=== PATIENT | male | born 1950 | race Caucasian/White ===

== ENCOUNTER 2016-07-20 23:03 | Emergency (ER) | payer MEDICARE, OTHER ==
[~2016-07-20] VITALS: Ht 177.8 cm; Wt 70.0 kg
[~2016-07-20 23:03] MED LIST: ALBU8I INH; GUAI100S6 PO; LEVA500T PO; PRED10PA PO; VARE1 PO; VARE1PAK3 PO
[2016-07-20 23:05] VITALS: BP 130/88; PULSE 117; RESP 20; TEMP 97.9; O2SAT 97
[2016-07-20] MEDS ORDERED: SYMB160A INH (23:23)
[2016-07-20] MEDS ORDERED: SODIUM CHLOR 0.9% 1000 ML INJ 1,000 ML IV ONE (23:30)
[2016-07-20] MEDS ORDERED: SODIUM CHLORIDE 0.9% FLUSH 10 ML FLUSH IVF PRN (23:30)
[2016-07-20] MEDS ORDERED: methylPREDNISolone SOD SUCC 125 MG/2 ML VIAL IVP ONE (23:30)
--- NOTE | 2016-07-21 00:11 | RADRPT ---
EXAM DATE/TIME: 07/21/2016 00:05 [place] COMPARISON: No previous studies available for comparison. INDICATIONS : Shortness of breath. MEDICAL HISTORY : None. SURGICAL HISTORY : None. ENCOUNTER: Initial ACUITY: 1 day PAIN SCORE: 0/10 LOCATION: Bilateral chest FINDINGS: The lungs are clear without infiltrate, nodule, or mass. There is no appreciable pleural effusion fo r technique. Heart and mediastinum are unremarkable. CONCLUSION: No acute cardiopulmonary disease. Zoila Zayas MD on July 21, 2016 at 0:07 Board Certified Radiologist. This report was verified electronically.
[2016-07-21] MEDS ORDERED: cefTRIAXone INJ 1,000 MG in SODIUM CHLORIDE 0.9% INJ 100 ML IV ONE (00:15)
[2016-07-21] MEDS ORDERED: AZITHROMYCIN INJ 500 MG in SODIUM CHLOR 0.9% 250 ML INJ 250 ML IV ONE (00:15)
[2016-07-21 00:30] VITALS: O2SAT 97
[2016-07-21] MEDS: RESP: ALBUTEROL 2.5 MG/IPRATROPIUM 0.5 MG NEB (SCH) INH ×2 (00:33→00:35)
[2016-07-21 00:48] LABS: BLOOD, URINE NEG (NEG); GLUCOSE,URINE NEG (NEG); KETONE, URINE NEG (NEG); NITRITE,URINE NEG (NEG); PH, URINE 5.5 (5.0-8.5); URINE COLOR COLORLESS (YELLW/STRAW)
[2016-07-21 00:51] LABS: AUTOMATED NEUTROPHIL # 4.4 TH/MM3 (1.8-7.7); BASOPHIL # 0.1 TH/MM3 (0-0.2); BASOPHIL % 0.9 % (0.0-2.0); EOSINOPHIL # 0.2 TH/MM3 (0-0.4); EOSINOPHIL % 2.6 % (0.0-4.0); HEMATOCRIT 44.9 % (39.0-51.0); HEMO FLAGS DIFF FINAL; LYMPH % 27.9 % (9.0-44.0); LYMPHOCYTE # 2.1 TH/MM3 (1.0-4.8); MEAN CELL VOLUME 96.4 FL (80.0-100.0); MEAN CORPUSCULAR HEMOGLOBIN 32.3 PG (27.0-34.0); MEAN CORPUSCULAR HGB CONC 33.5 % (32.0-36.0); MONO % 11.2 % (0.0-8.0); NEUT % 57.4 % (16.0-70.0); PLATELET COUNT 269 TH/MM3 (150-450); RED BLOOD COUNT 4.65 MIL/MM3 (4.50-5.90); RED CELL DISTRIBUTION WIDTH 13.5 % (11.6-17.2); WHITE BLOOD COUNT 7.6 TH/MM3 (4.0-11.0)
[2016-07-21 00:56] LABS: COMMENT (UR) CULT NOT INDICATED; CULTURE IF INDICATED CULT NOT INDICATED
[2016-07-21 00:57] LABS: APTT (PATIENT) 26.7 SEC (24.3-30.1); INTERNATIONAL NORMALIZED RATIO 0.9 RATIO
--- NOTE | 2016-07-21 01:04 | PD ---
HPI Chief Complaint: Chest Pain Time Seen by Provider: 23:20 Travel History International Travel<30 days: No Contact w/Intl Traveler<30days: No Traveled to known affect area: No History of Present Illness HPI The patient is a 66 year old male who presents to the [facility] emergency department with a history of shortness of breath that became worse yesterday when his air conditioning broke. The patient reports that he does have a history of COPD and is on inhalers. He unfortunately continues to smoke between one and 2 packs of cigarettes per day. The patient reports that since yesterday's had chest tightness which shortness of breath. He reports that he has a chronic daily productive cough that has not been any more productive than usual. He denies having any known fevers. He reports that his cough is occasionally productive of yellow sputum. He denies having any lower extremity edema, calf pain, or erythema. He denies having any prior history of congestive heart failure or myocardial infarction. I review systems, the patient denies any neck pain, abdominal pain, vomiting, diarrhea, urinary symptoms, or neurologic symptoms. [facility] Past Medical History Narrative Medical The patient's past medical history is significant for COPD, hypertension, daily alcohol use, daily tobacco use, history of chronic abdominal pain, history of acid reflux. Cardiovascular Problems: Yes COPD: Yes Gastrointestinal Disorders: Yes (CHRONIC ABD PAIN) GERD: Yes Hypertension: Yes Respiratory: Yes Tetanus Vaccination: < 5 Years Influenza Vaccination: Yes Past Surgical History Narrative Surgical The patient has a past surgical history significant for a Cedric fundoplication , appendectomy. Abdominal Surgery: Yes (STOMACH REPAIR OF SOME KIND FOR REFLUX) Appendectomy: Yes Social History Alcohol Use: Yes (8-10 BEERS DAILY) Tobacco Use: Yes (2PPD) Substance Use: No (DENIES USE) Allergies-Medications (Allergen,Severity, Reaction): Coded Allergies: No Known Allergies (Verified , 07/20/16) Reported Meds & Prescriptions Reported Meds & Active Scripts Active Reported Symbicort Inh (Budesonide/Formoterol Fumarate) 160-4.5 Mcg/Act Aero 2 Puff INH Q12HR Review of Systems Except as stated in HPI: all other systems reviewed are Neg General / Constitutional: No: Fever Eyes: No: Visual changes HENT: No: Headaches Cardiovascular: Positive: Chest Pain or Discomfort, No: Diaphoresis Respiratory: Positive: Cough, Shortness of Breath Gastrointestinal: No: Abdominal Pain Genitourinary: No: Dysuria Musculoskeletal: No: Pain Skin: No Rash Neurologic: No: Weakness, Focal Abnormalities, Change in Mentation, Sensory Disturbance Psychiatric: No: Depression Endocrine: No: Polydipsia Hematologic/Lymphatic: No: Easy Bruising Physical Exam Narrative General: The patient is a well-developed well-nourished male who appears slightly dyspneic on my arrival to the room. He occasionally experiences conversational dyspnea. Head and Neck exam: Head is normocephalic atraumatic. Eyes: EOMI, pupils are equal round and reactive to light. Nose: Midline septum with pink mucous membranes Mouth: Dentition unremarkable. Moist mucus membranes. Posterior oropharynx is not erythematous. No tonsillar hypertrophy. Uvula midline. Airway patent. Neck: No palpable lymphadenopathy. No nuchal rigidity. No thyromegaly. Cardiovascular: Sinus tachycardia in the 1 teens without murmurs, gallops, or rubs. No pulse deficit to the extremities and simultaneous auscultation and palpation of his radial artery. Lungs: Expiratory wheezes audible bilaterally with equal breath sounds. No crackles or rhonchi. No paroxysmal abdominal breathing. The patient does have some accessory muscle use and conversational dyspnea. Abdomen: Soft, without tenderness to palpation in all 4 quadrants of the abdomen. No guarding, rebound, or rigidity. Normal bowel sounds are audible. No tenderness on palpation of McBurney's point. Extremities: No clubbing, cyanosis, or edema. 2+ pulses in all 4 extremities. No calf tenderness on palpation Back: No costovertebral angle tenderness to palpation. Neurologic Exam: Grossly nonfocal. Skin Exam: No rash noted. Intact skin that is warm and dry. Data Data Last Documented VS Vital Signs Date Time Temp Pulse Resp B/P Pulse Ox O2 Delivery O2 Flow Rate FiO2 07/21/16 00:30 97 21 07/20/16 23:13 96 18 07/20/16 23:05 97.9 130/88 Room Air Orders Complete Blood Count With Diff (07/20/16 23:30) Comprehensive Metabolic Panel (07/20/16 23:30) B-Type Natriuretic Peptide (07/20/16 23:30) Act Partial Throm Time (Ptt) (07/20/16 23:30) Prothrombin Time / Inr (Pt) (07/20/16 23:30) Magnesium (Mg) (07/20/16 23:30) Ckmb (Isoenzyme) Profile (07/20/16 23:30) Troponin I (07/20/16:30) Urinalysis - C+S If Indicated (07/20/16 23:30) Blood Culture (07/20/16 23:30) Iv Access Insert/Monitor (07/20/16:30) Electrocardiogram (07/20/16:30) Ecg Monitoring (07/20/16:30) Oximetry (07/20/16:30) Oxygen Administration (07/20/16:30) Chest, Single Ap (07/20/16:30) Sodium Chloride 0.9% Flush (Ns Flush) (07/20/16 23:30) Methylprednisolone So Succ Inj (Solumedr (07/20/16 23:30) Albuterol-Ipratropium Neb (Duoneb Neb) (07/20/16 23:30) Westergren Sedimentation Rate (07/20/16 23:30) Lactic Acid Sepsis Protocol (07/20/16 23:30) Sodium Chlor 0.9% 1000 Ml Inj (Ns 1000 M (07/20/16 23:30) Ceftriaxone Inj (Rocephin Inj) (07/21/16 00:15) Azithromycin Inj (Zithromax Inj) (07/21/16 00:15) Sodium Chlor 0.9% 1000 Ml Inj (Ns 1000 M (07/21/16 01:13) Sodium Chlor 0.9% 1000 Ml Inj (Ns 1000 M (07/21/16 01:13) Sodium Chlor 0.9% 1000 Ml Inj (Ns 1000 M (07/21/16 01:13) Admit Order (Ed Use Only) (07/21/16 01:27) Labs Laboratory Tests Test 07/21/16 00:19 White Blood Count 7.6 TH/MM3 Red Blood Count 4.65 MIL/MM3 Hemoglobin 15.0 GM/DL Hematocrit 44.9 % Mean Corpuscular Volume 96.4 FL Mean Corpuscular Hemoglobin 32.3 PG Mean Corpuscular Hemoglobin 33.5 % Concent Red Cell Distribution Width 13.5 % Platelet Count 269 TH/MM3 Mean Platelet Volume 8.6 FL Neutrophils (%) (Auto) 57.4 % Lymphocytes (%) (Auto) 27.9 % Monocytes (%) (Auto) 11.2 % Eosinophils (%) (Auto) 2.6 % Basophils (%) (Auto) 0.9 % Neutrophils # (Auto) 4.4 TH/MM3 Lymphocytes # (Auto) 2.1 TH/MM3 Monocytes # (Auto) 0.9 TH/MM3 Eosinophils # (Auto) 0.2 TH/MM3 Basophils # (Auto) 0.1 TH/MM3 CBC Comment DIFF FINAL Differential Comment Erythrocyte Sedimentation Rate 2 mm/hr Prothrombin Time 10.0 SEC Prothromb Time International 0.9 RATIO Ratio Activated Partial 26.7 SEC Thromboplast Time Urine Color COLORLESS Urine Turbidity CLEAR Urine pH 5.5 Urine Specific [place] 1.002 Urine Protein NEG mg/dL Urine Glucose (UA) NEG mg/dL Urine Ketones NEG mg/dL Urine Occult Blood NEG Urine Nitrite NEG Urine Bilirubin NEG Urine Urobilinogen LESS THAN 2.0 MG/DL Urine Leukocyte Esterase NEG Microscopic Urinalysis Comment CULT NOT INDICATED Sodium Level 136 MEQ/L Potassium Level 3.8 MEQ/L Chloride Level 99 MEQ/L Carbon Dioxide Level 22.4 MEQ/L Anion Gap 15 MEQ/L Blood Urea Nitrogen 10 MG/DL Creatinine 0.63 MG/DL Estimat Glomerular Filtration 128 ML/MIN Rate Random Glucose 80 MG/DL Lactic Acid Level 4.2 mmol/L Calcium Level 9.0 MG/DL Magnesium Level 2.4 MG/DL Total Bilirubin 0.4 MG/DL Aspartate Amino Transf 31 U/L (AST/SGOT) Alanine Aminotransferase 28 U/L (ALT/SGPT) Alkaline Phosphatase 85 U/L Total Creatine Kinase 93 U/L Troponin I LESS THAN 0.02 NG/ML B-Type Natriuretic Peptide 7 PG/ML Total Protein 7.7 GM/DL Albumin 4.1 GM/DL MDM Medical Decision Making Medical Screen Exam Complete: Yes Emergency Medical Condition: Yes Medical Record Reviewed: Yes Interpretation(s) Last Impressions Chest X-Ray 07/20/16 2250 Signed Impressions: Service Date/Time: Thursday, July 21, 2016 00:05 - CONCLUSION: No acute cardiopulmonary disease. Zoila Zayas MD Differential Diagnosis COPD exacerbation, versus pneumonia, versus acute coronary syndrome, versus pneumothorax, versus anxiety disorder Narrative Course During the course of the patients emergency department visit, the patients history, examination, and differential diagnosis were reviewed with the patient. The patient had IV access obtained and blood work sent for analysis. The patient was placed on a property assessment monitor with oximetry and blood pressure monitoring. EKG was done on arrival. The patient's EKG shows a sinus rhythm with a sinus arrhythmia heart rate of 96, left anterior fascicular block, QRS duration 92 ms, QTC 410 ms without any acute ST segment elevation or depression. The patient was initially provided DuoNeb nebs 3, Solu-Medrol 125 mg IV, Rocephin 1 g IV, Zithromax 500 IV. The patients laboratory studies were reviewed and remarkable for a white count of 7.6, hemoglobin 15, platelets 269 with a monocytosis at 11.2, sedimentation rate is 2, ruling out temporal arteritis in this patient that reports having intermittent right temporal headaches. CMP is unremarkable, CPK 93, troponin I less than 0.02, BNP 7, lactic acid 4.2, PT PTT within normal limits, urinalysis unremarkable. Radiology studies were reviewed and remarkable for a chest x-ray that shows no acute cardiopulmonary disease. The patient was reexamined and continued to have expiratory wheezes. The patient reported feeling anxious. The patient requested to have his IV removed and to leave. I explained to him that the plan was to admit him for rule out serial cardiac enzyme protocol and continued treatment of his COPD exacerbation with IV steroids. The patient refused admission. The patient reports that he just wants to go home. I explained to the patient that he could develop respiratory failure at home. The patient reports that he does not care. The patient is oriented to person, place, time, and situation. The patient has elected to leave AGAINST MEDICAL ADVICE. AMA: The risks of leaving against medical advice without further evaluation treatment were discussed with the patient. These risks include cardiac dysfunction, cardiac dysrhythmia, possible heart attack, possible stroke or . The patient indicated understanding of these risks and appeared to have the capacity to make this decision. Physician Communication Physician Communication A call was placed out to Dr. Starkey regarding admission, however the patient elected to leave AGAINST MEDICAL ADVICE while I was on the phone discussing the patient with her for admission. She was made aware that the patient instead will be signing out AMA. Diagnosis Primary Impression: COPD with exacerbation Additional Impression: Chest pain, rule out acute myocardial infarction Admitting Information Admitting Physician Requests: Observation Referrals: Primary Care Physician 1 day Patient Instructions: COPD (Chronic Obstructive Pulmonary Disease) (ED), General Instructions Disposition: 07 AGAINST MEDICAL ADVICE Condition: Alicia Dumas MD Jul 21, 2016 01:04
[2016-07-21 01:11] LABS: ALKALINE PHOSPHATASE 85 U/L (45-117); ALT (GPT) 28 U/L (12-78); ANION GAP 15 MEQ/L (5-15); AST (GOT) 31 U/L (15-37); BICARBONATE 22.4 MEQ/L (21.0-32.0); BLOOD UREA NITROGEN 10 MG/DL (7-18); CHLORIDE 99 MEQ/L (98-107); CREATINE KINASE 93 U/L (39-308); GLOMERULAR FILTRATION RATE 128 ML/MIN (>89); MAGNESIUM 2.4 MG/DL (1.5-2.5); POTASSIUM 3.8 MEQ/L (3.5-5.1); SODIUM (NA) 136 MEQ/L (136-145); TOTAL BILIRUBIN ADULT 0.4 MG/DL (0.2-1.0)
[2016-07-21] MEDS ORDERED: SODIUM CHLOR 0.9% 1000 ML INJ 100 ML IV ONE (01:13)
[2016-07-21] MEDS ORDERED: SODIUM CHLOR 0.9% 1000 ML INJ 1,000 ML IV ONE ×2 (01:13)
[2016-07-21 02:36] LABS: LACTIC ACID GHOST NOT REPORTABLE
--- NOTE | 2016-07-21 07:55 | EKG ---
Date Performed: 07/20/2016 Time Performed: 23:19:17 PTAGE: 66 years EKG: BASELINE ARTIFACT PRESENT. Sinus rhythm WITH SINUS ARRHYTHMIA LEFT ANTERIOR FASCICULAR BLOCK SEPTAL MYOCARDIAL INFARCTION ABNORMAL ECG NICHOLE RED TO PRIOR ELECTROCARDIOGRAM, Both EKGs have artifact but it appears that axis has rotated leftward and nonspecific T wave changes have improved. NO PREVIOUS TRACING DOCTOR: Solis Wagner Interpretating Date/Time 07/21/2016 07:53:43
== END 2016-07-21 06:49 | disposition left against medical advice (07) ==
LOC: NEPC 23:03 → UNDOADMOB 07-21 01:30 → NEDA 07-21 01:30 → NEPC 07-21 06:49
DX: J44.1 Chronic obstructive pulmonary disease with (acute) exacerbation (principal); R07.9 Chest pain, unspecified; I10 Essential (primary) hypertension; K21.9 Gastro-esophageal reflux disease without esophagitis; F17.210 Nicotine dependence, cigarettes, uncomplicated; I44.4 Left anterior fascicular block; I49.8 Other specified cardiac arrhythmias; R94.31 Abnormal electrocardiogram [ECG] [EKG]
CPT/HCPCS: 71010; 80053; 81001; 82550; 83605; 83735; 83880; 84484; 85025; 85610; 85652; 85730; 87040; 93005; 94640; 94664; 96374; 96375; 99285; G0378; J0696; J2930; J7030